=== PATIENT | male | born 1955 | race African-American/Black ===

== ENCOUNTER 2021-10-14 12:39 | Emergency (ER) | payer MEDICARE, MEDICAID ==
[~2021-10-14] VITALS: Ht 175.3 cm; Wt 78.0 kg
[2021-10-14 12:43] VITALS: BP 133/78
[2021-10-14] MEDS ORDERED: LIDOCAINE HCL 1% 20ML VIAL (Pyxis) INJ INFIL ONE (13:45)
== END 2021-10-14 14:39 | disposition home or self-care (01) ==
LOC: ER 13:06
DX: S01.511A Laceration without foreign body of lip, initial encounter (principal); Y04.0XXA Assault by unarmed brawl or fight, initial encounter; Y93.89 Activity, other specified; Y92.89 Other specified places as the place of occurrence of the external cause; Y99.8 Other external cause status
CPT/HCPCS: 12011; 99282; J3490; 99283